=== PATIENT | male | born 1975 | race Two or more races ===

== ENCOUNTER → 2021-06-10 | Day surgery (SDC) | payer BC ==
[~2021-06-10] VITALS: Ht 149.9 cm; Wt 51.0 kg
[~2021-06-10] MED LIST: ESOM40CA PO; IV RINGERS,LACTATED 1000ML 1,000 ML IV SCH; PROPOFOL 10 MG/ML (20ML) VIAL. IV ONE
[2021-06-10 08:05] VITALS: BP 140/74
[2021-06-10 08:45] VITALS: BP 105/55
--- NOTE | 2021-06-10 13:10 | HP ---
DATE OF SERVICE: 06/10/2021 ADMIT DATE: 06/10/2021 UPDATED HISTORY AND PHYSICAL REFERRING PHYSICIAN: Luis Morales MD REASON: Dysphagia, odynophagia. HISTORY OF PRESENT ILLNESS: A 46-year-old male whose past medical history is significant for hepatitis C and reflux, is seen for difficulties with swallowing. He had pain and discomfort with swallowing. It is precipitated by solid foods, but not with liquids. He is not a smoker or drinker, but does use caffeine as risk factors for reflux. He has had one month of discomfort. His weight is stable despite this and there has been no bleeding. Previous PPI therapy for 3 months has not resolved these issues. He had continued problems and requests additional evaluation. PAST MEDICAL HISTORY: Hep C, GERD. ALLERGIES: None. MEDICATIONS: Include Nexium 40 mg daily. FAMILY AND SOCIAL HISTORY: Nondrinker, nonsmoker. PAST SURGICAL HISTORY: Noncontributory. REVIEW OF SYSTEMS: Per records. PHYSICAL EXAMINATION: GENERAL: Reveals a well-nourished, well-developed male who is alert, cooperative, in no acute distress. VITAL SIGNS: Temp 98.2, pulse 84, respiratory rate 18. LUNGS: Clear. CARDIOVASCULAR: Reveals an S1, S2, without S3, S4 or appreciable murmur. ABDOMEN: Reveals a soft abdomen, normal bowel sounds without appreciable hepatosplenomegaly. IMPRESSION: Dysphagia, odynophagia, etiology is to be determined. Differential includes Jang's, Gerd, malignancy, peptic stricture, pill-induced ulcer, infectious esophagitis and/or eosinophilic esophagitis. Upper endoscopy is recommended. If this is unrevealing, then a CT of the neck and chest would be pursued as well. GEREMIAS ALVARADO: Juan Antonio TID: [id number]
== END | disposition home or self-care (01) ==
LOC: ENDOS 07:39
PROVIDERS: ATTEND Internal Medicine Gastroenterology
DX: R13.10 Dysphagia, unspecified (principal); K31.89 Other diseases of stomach and duodenum; K21.9 Gastro-esophageal reflux disease without esophagitis; Z79.899 Other long term (current) drug therapy; Z98.890 Other specified postprocedural states
CPT/HCPCS: 43235; 43450; J2704